=== PATIENT | male | born 1955 | race Caucasian/White ===

== ENCOUNTER 2019-03-07 21:39 | Emergency (ER) | payer OTHER ==
--- NOTE | 2019-03-07 21:58 | EDM.PDOCBH ---
ED HPI GENERAL MEDICAL PROBLEM - General Chief Complaint: Behavioral/Psych Stated Complaint: EVAL Time Seen by Provider: 03/07/19 21:52 Source of Information: Reports: Patient History Limitations: Reports: Other (Choosing not to speak much.) - History of Present Illness INITIAL COMMENTS - FREE TEXT/NARRATIVE: Patient presents from home sarai with his with suicidal ideation. He noticed things changing several days ago and reaction to multiple situational stressors in his life. Sarai he was at home watching a movie about the on television and suddenly told his that he did not feel safe at home and that he needed to come in somewhere and be evaluated. He follows for his care at the [facility] in [place]. He was hospitalized there in January 2018 under similar circumstances although he said that his condition was worse at that time. He is followed in the mental health clinic and also with the primary care provider there. When asked if there was any one single thing that changed in his mind sarai, his answer was no that there have been many many things building up over the last couple months but significantly worse in the last few days. He does not have a specific plan for self-harm but told his , and this doctor, that he no longer felt safe at home. He has firearms in the home. He denies any alcohol use or street drug use. No recent changes in health, meaning in the last few days. He is on an antibiotic for a prostate infection apparently. He otherwise takes sertraline lamotrigine aspirin alfuzosin and gabapentin although he has not been taking the gabapentin regularly. Onset: Gradual Duration: Day(s): (3) Severity: Moderate Improves with: Reports: None Worsens with: Reports: None Associated Symptoms: Reports: Malaise - Related Data Allergies Allergy/AdvReac Type Severity Reaction Status Date / Time clarithromycin [From Biaxin] Allergy Other Verified 03/07/19 22:23 Home Meds: Home Meds Alfuzosin [Uroxatral] 10 mg PO DAILY 03/07/19 [History] Aspirin [Halfprin] 81 mg PO DAILY 03/07/19 [History] Sertraline [Zoloft] 50 mg PO DAILY 03/07/19 [History] Sulfamethoxazole/Trimethoprim [Bactrim 400-80 MG] 1 each PO DAILY 03/07/19 [ History] lamoTRIgine [Lamotrigine] 12.5 mg PO DAILY 03/07/19 [History] ED ROS GENERAL - Review of Systems Review Of Systems: See Below Constitutional: Reports: Malaise. Denies: Fever, Chills Cardiovascular: Reports: Other (He reports chest tightness but had a coronary angiogram performed in November of this year which showed no coronary artery disease.) Neurological: Reports: Other (Poor sleep.) Psychiatric: Reports: Depression, Suicidal Ideation. Denies: Agitation, Anxiety , Hallucinations ED EXAM, BEHAVIORAL HEALTH - Physical Exam Exam: See Below Text/Narrative:: In response to questions, the patient has a delay of 10-15 seconds for most answers. He has been lying on the cart in room 8 with his jacket lewis over his head for most of his stay in this department. Exam Limited By: Other (Short answers to questions.) General Appearance: No Apparent Distress Respiratory/Chest: No Respiratory Distress Psychiatric: Depressed Mood, Flat Affect, Poor Eye Contact, Withdrawn COURSE, BEHAVIORAL HEALTH COMP - Course Vital Signs: Last Vital Signs Temp 36.0 C 03/07/19 22:24 Pulse 78 03/07/19 22:24 Resp 16 03/07/19 22:24 BP 136/83 03/07/19 22:24 Pulse Ox 95 03/07/19 22:24 Orders, Labs, Meds: Laboratory Tests 03/07/19 03/07/19 03/07/19 Range/Units 22:30 22:30 22:30 WBC 6.7 (4.5-11.0) K/uL RBC 4.83 (4.30-5.90) M/uL Hgb 14.2 (12.0-15.0) g/dL Hct 42.1 (40.0-54.0) % MCV 87 (80-98) fL MCH 29 (27-31) pg MCHC 34 (32-36) % Plt Count 215 (150-400) K/uL Neut % (Auto) 37 (36-66) % Lymph % (Auto) 48 H (24-44) % [place] % (Auto) 10 H (2-6) % Eos % (Auto) 5 H (2-4) % Baso % (Auto) 0 (0-1) % Sodium 138 L (140-148) mmol/L Potassium 3.8 (3.6-5.2) mmol/L Chloride 104 (100-108) mmol/L Carbon Dioxide 25 (21-32) mmol/L Anion Gap 12.8 (5.0-14.0) mmol/L BUN 22 H (7-18) mg/dL Creatinine 1.4 H (0.8-1.3) mg/dL Est Cr Clr Drug Dosing 55.76 mL/min Estimated GFR (MDRD) 51 L (>60) Glucose 114 H (74-106) mg/dL Calcium 8.9 (8.5-10.1) mg/dL Total Bilirubin 0.1 L (0.2-1.0) mg/dL AST 20 (15-37) U/L ALT 38 (12-78) U/L Alkaline Phosphatase 81 (46-116) U/L Total Protein 6.8 (6.4-8.2) g/dL Albumin 3.7 (3.4-5.0) g/dL Globulin 3.1 (2.3-3.5) g/dL Albumin/Globulin Ratio 1.2 (1.2-2.2) TSH, Ultra Sensitive 1.601 (0.358-3.740) uIU/mL Urine Color (YELLOW) Urine Appearance (CLEAR) Urine pH (5.0-8.0) Ur Specific Fenton (1.008-1.030) Urine Protein (NEGATIVE) mg/dL Urine Glucose (UA) (NEGATIVE) mg/dL Urine Ketones (NEGATIVE) mg/dL Urine Occult Blood (NEGATIVE) Urine Nitrite (NEGATIVE) Urine Bilirubin (NEGATIVE) Urine Urobilinogen (0.2-1.0) EU/dL Ur Leukocyte Esterase (NEGATIVE) Urine RBC (0-5) Urine WBC (0-5) Ur Epithelial Cells Amorphous Sediment Urine Bacteria Urine Mucus Urine Opiates Screen (NEGATIVE) Ur Oxycodone Screen (NEGATIVE) Urine Methadone Screen (NEGATIVE) Ur Propoxyphene Screen (NEGATIVE) Acetaminophen 0.0 L (10.0-30.0) ug/mL Ur Barbiturates Screen (NEGATIVE) Ur Tricyclics Screen (NEGATIVE) Ur Phencyclidine Scrn (NEGATIVE) Ur Amphetamine Screen (NEGATIVE) U Methamphetamines Scrn (NEGATIVE) Urine MDMA Screen (NEGATIVE) U Benzodiazepines Scrn (NEGATIVE) U Cocaine Metab Screen (NEGATIVE) U Marijuana (THC) Screen (NEGATIVE) Ethyl Alcohol < 3 mg/dL 03/07/19 03/07/19 Range/Units 22:40 22:40 WBC (4.5-11.0) K/uL RBC (4.30-5.90) M/uL Hgb (12.0-15.0) g/dL Hct (40.0-54.0) % MCV (80-98) fL MCH (27-31) pg MCHC (32-36) % Plt Count (150-400) K/uL Neut % (Auto) (36-66) % Lymph % (Auto) (24-44) % [place] % (Auto) (2-6) % Eos % (Auto) (2-4) % Baso % (Auto) (0-1) % Sodium (140-148) mmol/L Potassium (3.6-5.2) mmol/L Chloride (100-108) mmol/L Carbon Dioxide (21-32) mmol/L Anion Gap (5.0-14.0) mmol/L BUN (7-18) mg/dL Creatinine (0.8-1.3) mg/dL Est Cr Clr Drug Dosing mL/min Estimated GFR (MDRD) (>60) Glucose (74-106) mg/dL Calcium (8.5-10.1) mg/dL Total Bilirubin (0.2-1.0) mg/dL AST (15-37) U/L ALT (12-78) U/L Alkaline Phosphatase (46-116) U/L Total Protein (6.4-8.2) g/dL Albumin (3.4-5.0) g/dL Globulin (2.3-3.5) g/dL Albumin/Globulin Ratio (1.2-2.2) TSH, Ultra Sensitive (0.358-3.740) uIU/mL Urine Color Yellow (YELLOW) Urine Appearance Clear (CLEAR) Urine pH 7.0 (5.0-8.0) Ur Specific Fenton 1.020 (1.008-1.030) Urine Protein Negative (NEGATIVE) mg/dL Urine Glucose (UA) Negative (NEGATIVE) mg/dL Urine Ketones Negative (NEGATIVE) mg/dL Urine Occult Blood Negative (NEGATIVE) Urine Nitrite Negative (NEGATIVE) Urine Bilirubin Negative (NEGATIVE) Urine Urobilinogen 0.2 (0.2-1.0) EU/dL Ur Leukocyte Esterase Negative (NEGATIVE) Urine RBC 0-5 (0-5) Urine WBC 0-5 (0-5) Ur Epithelial Cells Rare Amorphous Sediment Moderate Urine Bacteria Few Urine Mucus Not seen Urine Opiates Screen Negative (NEGATIVE) Ur Oxycodone Screen Negative (NEGATIVE) Urine Methadone Screen Negative (NEGATIVE) Ur Propoxyphene Screen Negative (NEGATIVE) Acetaminophen (10.0-30.0) ug/mL Ur Barbiturates Screen Negative (NEGATIVE) Ur Tricyclics Screen Negative (NEGATIVE) Ur Phencyclidine Scrn Negative (NEGATIVE) Ur Amphetamine Screen Negative (NEGATIVE) U Methamphetamines Scrn Negative (NEGATIVE) Urine MDMA Screen Negative (NEGATIVE) U Benzodiazepines Scrn Negative (NEGATIVE) U Cocaine Metab Screen Negative (NEGATIVE) U Marijuana (THC) Screen Negative (NEGATIVE) Ethyl Alcohol mg/dL Re-Assessment/Re-Exam: I returned later to review his labs, which are unremarkable tonight. I discussed options for admission and he has mixed thoughts about coming to the [facility] but he understands that as a service-connected , all of his care is covered. I asked him if he wants [facility] to call [facility] or if he wanted me to contact any different facilities? He replied "whatever you think " I told him that [facility] as [facility] an [facility] and it would be easiest for people to coordinate care. During his admission in January 2018, he was disappointed that his psychologist did not visit him on the psychiatric unit at any time during his admission. I discussed that most facilities have different groups of doctors to manage inpatients versus outpatient clinic care. He does have sleep apnea and uses CPAP although his states that he does not use it every night and intermittently goes without any respiratory support from it. Later, I reviewed his case with Dr. Laws, the psychiatrist airport operations specialist at the [facility]. She accepts him in transfer. They are not able to accommodate his CPAP unit at this time however and his would need to keep it with her. He will be transported by ambulance. He is not on a hold. EMTALA transfer paperwork completed. Departure - Departure Time of Disposition: 01:00 Disposition: DC/Tfer to Psych Hosp/Unit 65 Condition: Good Clinical Impression: Suicidal ideation, Depressive disorder - Discharge Information *PRESCRIPTION DRUG MONITORING PROGRAM REVIEWED*: Not Applicable *COPY OF PRESCRIPTION DRUG MONITORING REPORT IN PATIENT ROBYN: Not Applicable Referrals: PCP,None [Primary Care Provider] - Forms: ED Department Discharge, Interfacility Transfer JOSELUIS Sepsis Event Note - Focused Exam Vital Signs: Vital Signs Temp Pulse Resp BP Pulse Ox 03/07/19 22:24 36.0 C 78 16 136/83 95 03/07/19 21:51 36.0 C 78 16 136/83 95 Date Exam was Performed: 03/08/19 Time Exam was Performed: 00:59
== END 2019-03-08 01:20 ==
LOC: JP.ED 21:39
DX: R45.851 Suicidal ideations (principal); F32.9 Major depressive disorder, single episode, unspecified; Z88.1 Allergy status to other antibiotic agents; Z79.899 Other long term (current) drug therapy
CPT/HCPCS: 36415; 80053; 80305-QW; 81001; 84443; 85025; 99284; 99285; G0480

== ENCOUNTER 2020-07-14 07:49 | Day surgery (SDC) | payer MEDICARE, OTHER ==
[~2020-07-14 07:49] MED LIST: Midazolam 1 MG/ML 2 ML SDV ONE; Propofol 200 MG/20 ML SDV ONE; fentaNYL 100 MCG/2 ML SDV ONE
[2020-07-14] MEDS ORDERED: Sodium Chloride 0.9% 1,000 ML IV SCH (08:15)
--- NOTE | 2020-07-14 14:48 | OR ---
DATE OF PROCEDURE: 07/14/2020 SURGEON: Juan Antonio Trevizo MD PROCEDURE: Colonoscopy. FINDINGS: 1. Sigmoid colon polyp, approximately 5 mm, completely removed using cold biopsy forceps. 2. Diverticulosis, mild, limited to sigmoid colon. COMPLICATIONS: None. ELECTRICAL PANEL BUILDER: None. ANESTHESIA: MAC. PREOPERATIVE DIAGNOSIS: Screening colonoscopy. POSTOPERATIVE DIAGNOSIS: Screening colonoscopy. RISKS: Risks, benefits, alternatives, and limitations including, but not limited to infection, bleeding, perforation, false positives, false negatives, and other risks not listed here were explained to the patient who wished to proceed. PROCEDURE IN DETAIL: The patient was placed in left lateral decubitus position. Digital rectal exam was performed without abnormality. Scope was introduced and advanced atraumatically to the ileocecal valve. A photo was taken of this. Scope was brought back to the ascending, transverse, descending colon, and retroflexed. No evidence of old or new blood. No masses. The diverticulosis would be described as mild, mostly limited to sigmoid colon with a few scattered noted throughout the entire colon. This was without evidence of diverticulitis or bleeding. No abnormalities on retroflexion. No colitis. Greater than 8 minutes was spent removing the scope. The prep was acceptable, approximately 90% of the luminal surface could be seen. The patient tolerated the procedure well. Juan Antonio Trevizo MD /[id number]
== END 2020-07-14 11:30 | disposition home or self-care (01) ==
LOC: JP.SDS 07:49
PROVIDERS: ATTEND Surgery
DX: Z12.11 Encounter for screening for malignant neoplasm of colon (principal); K57.30 Diverticulosis of large intestine without perforation or abscess without bleeding; K63.5 Polyp of colon; G47.33 Obstructive sleep apnea (adult) (pediatric); Z88.8 Allergy status to other drugs, medicaments and biological substances
CPT/HCPCS: 45380; J2250; J2704; J3010; J7030; 88305

== ENCOUNTER 2021-02-14 18:53 | Emergency (ER) | payer OTHER ==
--- NOTE | 2021-02-14 19:47 | EDM.PDOC ---
ED HPI GENERAL MEDICAL PROBLEM - General Chief Complaint: Respiratory Problem Stated Complaint: SHORTNESS OF BREATH/FEVER Time Seen by Provider: 02/14/21 19:15 Source of Information: Reports: Patient History Limitations: Reports: No Limitations - History of Present Illness INITIAL COMMENTS - FREE TEXT/NARRATIVE: 65-year-old male with no pulmonary history, unvaccinated for Covid has been ill for 6 days. He was tested positive for Covid 5 days ago. Today he was out moving some wood on his wood pile, became lightheaded and short of breath and dropped to his knees. He has weakness and malaise and still running low-grade fevers. No nausea or vomiting. Intermittent chest pain especially with coughing. Just feels awful. Onset: Gradual Duration: Day(s): (Symptoms for 6 days) Associated Symptoms: Reports: Chest Pain (Intermittent chest pain when coughing), Fever/Chills, Malaise, Weakness Headache Pain Score (Numeric/FACES): 3 - Related Data Allergies Allergy/AdvReac Type Severity Reaction Status Date / Time clarithromycin [From Biaxin] Allergy Other Verified 02/14/21 19:08 Home Meds: Home Meds Alfuzosin [Uroxatral] 10 mg PO BEDTIME 03/07/19 [History] Venlafaxine HCl [Venlafaxine ER] 3 tab PO DAILY 07/09/20 [History] Cholecalciferol (Vitamin D3) [Vitamin D3] 25 mcg PO DAILY 07/14/20 [History] Tadalafil [Cialis] 5 mg PO DAILY 07/14/20 [History] Finasteride 1 tab PO DAILY 02/14/21 [History] Past Medical History HEENT History: Reports: Impaired Vision Cardiovascular History: Reports: High Cholesterol Other Cardiovascular History: angiogram and stress test fall 2018 Respiratory History: Reports: Sleep Apnea Gastrointestinal History: Reports: Colon Polyp Genitourinary History: Reports: BPH Musculoskeletal History: Reports: Arthritis, Fracture Other Musculoskeletal History: alexis in right leg Neurological History: Reports: Head Trauma Psychiatric History: Reports: Anxiety, Depression, PTSD, Suicidal Ideation Other Psychiatric History: passive aggressive Oncologic (Cancer) History: Reports: Prostate Dermatologic History: Reports: Eczema - Infectious Disease History Infectious Disease History: Reports: Chicken Pox, Measles - Past Surgical History HEENT Surgical History: Reports: Eye Surgery, Oral Surgery GI Surgical History: Reports: Colonoscopy, EGD Male Surgical History: Reports: Prostate Biopsy Musculoskeletal Surgical History: Reports: None Social & Family History - Family History Family Medical History: No Pertinent Family History - Caffeine Use Caffeine Use: Reports: Coffee, Energy Drinks - Recreational Drug Use Recreational Drug Use: No ED ROS GENERAL - Review of Systems Review Of Systems: See Below Constitutional: Reports: Fever, Chills, Malaise HEENT: Reports: No Symptoms Respiratory: Reports: Shortness of Breath, Cough Cardiovascular: Reports: Chest Pain (With coughing) GI/Abdominal: Reports: Decreased Appetite. Denies: Vomiting : Reports: No Symptoms Musculoskeletal: Reports: Other (Generalized body aches) Skin: Reports: No Symptoms Neurological: Reports: Dizziness, Weakness. Denies: Headache ED EXAM, GENERAL - Physical Exam Exam: See Below Exam Limited By: No Limitations General Appearance: Alert, No Apparent Distress Eye Exam: Bilateral Eye: Normal Inspection Head: Atraumatic Neck: Non-Tender. No: Lymphadenopathy (R), Lymphadenopathy (L) Respiratory/Chest: No Respiratory Distress, Lungs Clear Cardiovascular: Regular Rate, Rhythm GI/Abdominal: Non-Tender Neurological: Alert, Oriented, No Motor/Sensory Deficits Psychiatric: Normal Affect, Normal Mood Skin Exam: Warm, Dry Course - Vital Signs Last Recorded V/S: Last Vital Signs Temp 96.6 F L 02/14/21 19:03 Pulse 94 02/14/21 19:03 Resp 18 02/14/21 19:03 BP 139/85 02/14/21 19:03 Pulse Ox 94 L 02/14/21 19:03 - Orders/Labs/Meds Labs: Laboratory Tests 02/14/21 Range/Units 19:39 SARS CoV-2 RNA Rapid HERMAN Positive H - Re-Assessments/Exams Free Text/Narrative Re-Assessment/Exam: 02/14/21 19:54 Patient's presentation is encouraging, O2 sats are normal, lungs are clear and his vitals are normal he is afebrile at this time. He is a good candidate for monoclonal antibody and will be scheduled for that on Tuesday morning. We did have to confirm that this is Covid so a rapid test was performed and that is pending. Departure - Departure Time of Disposition: 20:26 Disposition: Home, Self-Care 01 Clinical Impression: COVID-19 - Discharge Information Instructions: COVID-19 Referrals: Magen Goetz MD [Primary Care Provider] - Forms: ED Department Discharge Care Plan Goals: Rest today, return Tuesday for antibiotic therapy as planned. Return sooner if worsening such as difficulty breathing. Sepsis Event Note (ED) - Evaluation Sepsis Screening Result: No Definite Risk - Focused Exam Vital Signs: Vital Signs Temp Pulse Resp BP Pulse Ox 02/14/21 19:03 96.6 F L 94 18 139/85 94 L
== END 2021-02-14 20:26 | disposition home or self-care (01) ==
LOC: JP.ED 18:53
DX: U07.1 COVID-19 (principal); Z88.1 Allergy status to other antibiotic agents
CPT/HCPCS: 99284; U0002